=== PATIENT | male | born 1965 | race Caucasian/White ===

== ENCOUNTER 2024-10-30 07:02 | Day surgery (SDC) | payer BC ==
[2024-10-29 16:09] LABS: Absolute Eosinophils 0.2 K/uL (0-0.5); Absolute Lymphocytes (CBC) 3.1 K/uL (0.7-4.9); Absolute Monocytes 0.7 K/uL (0.1-1.3); Absolute Neutrophil 3.7 K/uL (1.8-8.0); Basophils % 0.6 % (0-1.3); Eosinophils % 2.9 % (0-4.4); Hemoglobin 15.6 g/dL (13.6-17.9); Lymphocytes % 40.2 % (15.3-44.8); MCH 30.7 pg (27.0-35.0); MCHC 34.8 g/dL (32.0-36.0); MCV 88.2 fL (80-100); MPV 8.9 fL (7.6-11.3); Monocytes % 8.7 % (3.3-12.3); Neutrophils % 47.6 % (41.7-73.7); Nucleated Red Blood Cells % 0.1 % (0-0); Platelets 236 thou/uL (152-406); Red Cell Distribution Width 14.1 % (12.1-15.2)
[2024-10-29 16:15] LABS: Anion Gap 10.6 mEq/L (5.0-15.0); Potassium 3.6 mEq/L (3.5-5.1)
[2024-10-30] MEDS ORDERED: Ringers Lactate 1,000 ML IV ONE (07:28)
[2024-10-30] MEDS ORDERED: LIDOCAINE 1% MPF 2 ML AMPULE ONE (08:10)
[2024-10-30] MEDS ORDERED: propofoL 200 MG/20 ML VIAL IV ONE (08:10)
[2024-10-30 09:41] VITALS: BP 142/81; TEMP 97.3; O2SAT 99
--- NOTE | 2024-10-30 11:59 | EKG ---
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
== END 2024-10-30 09:38 | disposition home or self-care (01) ==
LOC: OR 07:02
PROVIDERS: ATTEND Surgery
PROC: 0DBN8ZX Excision of Sigmoid Colon, Via Natural or Artificial Opening Endoscopic, Diagnostic (ICD-10-PCS; principal; 2024-10-30 08:20)
DX: Z12.11 Encounter for screening for malignant neoplasm of colon (principal); K57.30 Diverticulosis of large intestine without perforation or abscess without bleeding; K64.4 Residual hemorrhoidal skin tags; K64.8 Other hemorrhoids; K63.5 Polyp of colon
CPT/HCPCS: 93005; 85025; 80048; 36415; 88305; 45384; J2704; J7120